=== PATIENT | male | born 1945 | race Two or more races ===

== ENCOUNTER 2020-04-02 00:25 | Inpatient (IN) | payer OTHER ==
[~2020-04-02] VITALS: Ht 167.6 cm; Wt 96.0 kg
[2020-04-02] MEDS ORDERED: HYDROcodone-ACET 10/325MG TAB PO ONE (01:00)
[2020-04-02] MEDS ORDERED: ACCU-CHEK COMFORT CURVE STRIP VI ONE (01:15)
[2020-04-02] MEDS ORDERED: dilTIAZem 25 MG/5 ML VIAL IV ONE (02:00)
[2020-04-02] MEDS ORDERED: InsuLIN REG 1unit/0.01ml Soln (100units/ml) IV ONE (02:00)
[2020-04-02] MEDS ORDERED: dilTIAZem HCL 60 MG TAB PO ONE (02:00)
[2020-04-02 02:29] LABS: Basophils # (auto) 0.1 10 ^3/uL (0-0.2); Basophils % (auto) 0.6 % (0.0-2.0); Eosinophils # (auto) 0 10 ^3/uL (0-0.8); Hematocrit 34.6 % (41.0-53.0); Hemoglobin 11.5 g/dL (13.5-17.5); Lymphocytes # (auto) 0.4 10 ^3/uL (0.4-5.4); Lymphocytes % (auto) 1.8 % (10.0-50.0); Mean Corpuscular Hemoglobin 27.4 pg (28.0-32.0); Mean Corpuscular Hgb Conc. 33.3 g/dL (32.0-36.0); Mean Corpuscular Volume 82.1 fL (80.0-100.0); Monocytes # (auto) 0.7 10 ^3/uL (0-1.3); Monocytes % (auto) 3.2 % (0.0-12.0); Neutrophils # (auto) 22.3 10 ^3/uL (1.6-8.6); Neutrophils % (auto) 94.4 % (37.0-80.0); Platelet Count (auto) 270 10^3/uL (140-450); Red Blood Cells 4.21 10^6/uL (4.5-5.90); Red Cell Distribution Width 13.5 % (11.8-14.3); White Blood Cell 23.6 10^3/uL (4.4-10.8)
[2020-04-02 02:43] LABS: Potassium 3.8 mmol/L (3.5-5.1)
[2020-04-02 02:51] LABS: Albumin 1.9 g/dL (3.4-5.0); BUN/Creatinine Ratio 20.2; Bilirubin, Total 0.8 mg/dL (0.2-1.0); Total Protein 6.7 g/dL (6.4-8.2)
[2020-04-02] MEDS ORDERED: PIPERACILLIN-TAZOB 3.375GM 100 ML IV ONE (03:00)
[2020-04-02] MEDS ORDERED: VANCOMYCIN 1GM/250ML 250 ML IV ONE (03:00)
[2020-04-02 03:17] LABS: Lactic Acid w/Reflex 3.3 mmol/L (0.4-2.0)
[2020-04-02] MEDS ORDERED: SODIUM CHLORIDE 0.9% 1,000 ML IV ONE (04:15)
[2020-04-02] MEDS ORDERED: NITROGLYCERIN 0.4 MG SL TAB SL PRN (06:00)
[2020-04-02] MEDS ORDERED: MORPHINE SULF INJ 2 MG/ML SYRINGE 1ML IV PRN (06:00)
[2020-04-02] MEDS ORDERED: ACETAMINOPHEN 325 MG TAB PO PRN ×2 (06:00→09:30)
[2020-04-02] MEDS ORDERED: ONDANSETRON HCL 4 MG/2 ML VIAL IV PRN (06:00)
[2020-04-02] MEDS ORDERED: DEXTROSE (50%) 50ML SYRG IV PRN (06:00)
[2020-04-02] MEDS ORDERED: METOPROLOL TARTRATE 1MG/1ML-5ML VIAL IV PRN (06:00)
[2020-04-02 07:18] LABS: Hemoglobin 10.7 g/dL (13.5-17.5); Platelet Count (auto) 222 10^3/uL (140-450)
[2020-04-02 07:20] LABS: Hematocrit 32.6 % (41.0-53.0); Mean Corpuscular Hemoglobin 27.1 pg (28.0-32.0); Mean Corpuscular Hgb Conc. 32.8 g/dL (32.0-36.0); Mean Corpuscular Volume 82.7 fL (80.0-100.0); Red Blood Cells 3.95 10^6/uL (4.5-5.90); Red Cell Distribution Width 13.8 % (11.8-14.3)
[2020-04-02 07:30] LABS: Band Neutrophils % (manual) 0; Basophils % (manual) 0 (0.0-2.0); Blast Cells 0; Eosinophils % (manual) 0 (0-7); Metamyelocytes % 0; Myelocytes % 0; Promyelocytes % 0; Reactive Lymphocytes 0
[2020-04-02 07:37] LABS: Potassium 3.5 mmol/L (3.5-5.1)
[2020-04-02 07:42] LABS: BUN/Creatinine Ratio 23.2; Calcium 7.7 mg/dL (8.5-10.1)
[2020-04-02 07:55] LABS: Lymphocytes % (manual) 4 (10.0-50.0); Monocytes % (manual) 1 (0-12)
[2020-04-02] MEDS: ACCU-CHEK COMFORT CURVE STRIP VI SCH ×5 (08:27→23:48)
[2020-04-02] MEDS: InsuLIN REG 1unit/0.01ml Soln (100units/ml) SC SCH ×5 (08:45→23:55)
[2020-04-02 08:57] LABS: Urine Bacteria FEW /hpf (None Seen); Urine Blood 1+ /uL (Negative); Urine Hyaline Cast MANY /lpf (0 - 2); Urine Sperm PRESENT /hpf (None Seen); Urine WBC 2 /hpf (0 - 3)
[2020-04-02] MEDS ORDERED: MAGNESIUM SULFATE 1GM/100ML 100 ML IV ONE (09:00)
[2020-04-02 09:23] LABS: Alcohol, Urine < 3.0 mg/dL (0-10); Amphetamine Screen, Urine NEGATIVE (NEGATIVE); Barbiturate Scree,Urine NEGATIVE (NEGATIVE); Benzodiazephine Screen, Urine NEGATIVE (NEGATIVE); Cannabinoid Screen, Urine NEGATIVE (NEGATIVE); Cocaine Screen, Urine NEGATIVE (NEGATIVE); Opiate Scree,Urine NEGATIVE (NEGATIVE); Phencyclidine Screen, Urine NEGATIVE (NEGATIVE)
[2020-04-02] MEDS ORDERED: POTASSIUM EFFERVESENT TAB 25 MEQ PO ONE (09:30)
[2020-04-02] MEDS ORDERED: SODIUM CHLORIDE 0.9% 500 ML IV ONE (09:30)
[2020-04-02] MEDS: DOCUSATE SOD 100 MG CAP PO SCH (09:49)
[2020-04-02] MEDS: ENOXAPARIN SOD 80 MG/0.8ML SYRINGE SC SCH ×2 (09:49→21:36)
[2020-04-02] MEDS ORDERED: ASPirin 81 mg TAB PO SCH (10:00)
[2020-04-02] MEDS ORDERED: CLOPIDOGREL BISULFATE 75 MG TAB PO SCH (10:00)
[2020-04-02] MEDS ORDERED: PHENYLEPHRINE IV 250 ML IV SCH (10:38)
[2020-04-02] MEDS ORDERED: PHENYLEPHRINE IV 250 ML IV ONE (10:44)
[2020-04-02 13:01] LABS: CRP High Sensitivity 18.8 mg/dL (< 0.3)
[2020-04-02] MEDS ORDERED: HYDR12.56 PO (13:08)
[2020-04-02] MEDS ORDERED: ISOS10TA2 PO (13:08)
[2020-04-02] MEDS ORDERED: ATEN-60 PO (13:08)
[2020-04-02] MEDS ORDERED: ATOR40TA52 PO (13:09)
[2020-04-02] MEDS ORDERED: CHOL20007 PO (13:09)
[2020-04-02] MEDS ORDERED: MAGN400T40 PO (13:09)
[2020-04-02] MEDS ORDERED: BENA10TA9 PO (13:10)
[2020-04-02] MEDS ORDERED: METF-371 PO (13:10)
[2020-04-02] MEDS ORDERED: LEVO-28 PO (13:11)
[2020-04-02] MEDS ORDERED: CLOP75TA41 PO (13:12)
[2020-04-02] MEDS ORDERED: INSU100I51 SC (13:12)
[2020-04-02] MEDS ORDERED: INSU1INJ19 SC (13:12)
[2020-04-02] MEDS ORDERED: LATA0.0019 EACHEYE (13:14)
[2020-04-02] MEDS ORDERED: OYST500T48 PO (13:14)
[2020-04-02] MEDS ORDERED: ASPI-266 PO (13:14)
[2020-04-02] MEDS ORDERED: MESA400C5 PO (13:15)
[2020-04-02] MEDS ORDERED: DIGOXIN (250MCG/ML) 2 ML AMPULE IV ONE (14:00)
[2020-04-02] MEDS ORDERED: VANCOMYCIN PER PHARMACY 0 MG IV SCH (14:15)
[2020-04-02] MEDS: ALBUMIN 25% 100 ML IV SCH ×2 (14:32→22:18)
[2020-04-02] MEDS: SODIUM CHLORIDE 0.9% 1,000 ML IV SCH (14:41)
[2020-04-02] MEDS: PIPERACILLIN-TAZOB 3.375GM 100 ML IV SCH ×2 (18:11→23:48)
[2020-04-02] MEDS ORDERED: LORazepam 2MG/ML-1ML VIAL IV PRN (21:30)
[2020-04-02] MEDS ORDERED: ATORVASTATIN 20 MG TAB PO SCH (22:00)
[2020-04-03] VITALS (7 sets, daily range): BP systolic 91–123; BP diastolic 53–59
[2020-04-03] MEDS: SODIUM CHLORIDE 0.9% 1,000 ML IV SCH (00:31)
[2020-04-03] MEDS ORDERED: EPINEPHrine HCL 1 MG/10 ML SYRG IV ONE (02:45)
[2020-04-03] MEDS ORDERED: SODIUM BICARBONATE 8.4% INJ 50ML SYRINGE IV ONE (02:45)
[2020-04-03] MEDS ORDERED: DIGOXIN (250MCG/ML) 2 ML AMPULE IV ONE (03:30)
[2020-04-03] MEDS: InsuLIN REG 1unit/0.01ml Soln (100units/ml) SC SCH ×5 (04:16→20:47)
[2020-04-03] MEDS: ACCU-CHEK COMFORT CURVE STRIP VI SCH ×5 (04:16→20:43)
[2020-04-03] MEDS: PIPERACILLIN-TAZOB 3.375GM 100 ML IV SCH ×3 (05:47→18:19)
[2020-04-03 07:22] LABS: Potassium 3.3 mmol/L (3.5-5.1)
[2020-04-03 07:29] LABS: Albumin 2.1 g/dL (3.4-5.0); BUN/Creatinine Ratio 33.7; Bilirubin, Total 1.3 mg/dL (0.2-1.0); Calcium 7.9 mg/dL (8.5-10.1); Total Protein 6.3 g/dL (6.4-8.2)
[2020-04-03 07:30] LABS: Basophils # (auto) 0 10 ^3/uL (0-0.2); Eosinophils # (auto) 0 10 ^3/uL (0-0.8); Eosinophils % (auto) 0.1 % (0.0-7.0); Hematocrit 32.6 % (41.0-53.0); Hemoglobin 10.8 g/dL (13.5-17.5); Lymphocytes # (auto) 0.3 10 ^3/uL (0.4-5.4); Lymphocytes % (auto) 2.9 % (10.0-50.0); Mean Corpuscular Hemoglobin 27.4 pg (28.0-32.0); Mean Corpuscular Hgb Conc. 33.1 g/dL (32.0-36.0); Mean Corpuscular Volume 82.8 fL (80.0-100.0); Monocytes # (auto) 0.6 10 ^3/uL (0-1.3); Monocytes % (auto) 5.1 % (0.0-12.0); Neutrophils # (auto) 9.9 10 ^3/uL (1.6-8.6); Neutrophils % (auto) 91.9 % (37.0-80.0); Platelet Count (auto) 177 10^3/uL (140-450); Red Blood Cells 3.94 10^6/uL (4.5-5.90); Red Cell Distribution Width 13.6 % (11.8-14.3); White Blood Cell 10.8 10^3/uL (4.4-10.8)
[2020-04-03] MEDS: ALBUMIN 25% 100 ML IV SCH (07:49)
[2020-04-03] MEDS ORDERED: POTASSIUM CHL 20 Meq TABLET PO ONE ×2 (08:15→09:45)
[2020-04-03] MEDS ORDERED: AMIODARONE HCL 150 MG in D5W 5% 100 ML IV ONE (08:15)
[2020-04-03] MEDS ORDERED: AMIODARONE 450mg/250ml AE 250 ML IV SCH (08:20)
[2020-04-03] MEDS: SOD CHL 0.9%/ KCL 20MEQ 1,000 ML IV SCH (09:45)
[2020-04-03] MEDS: DOCUSATE SOD 100 MG CAP PO SCH (09:51)
[2020-04-03] MEDS ORDERED: APIXABAN 5 MG TAB PO SCH (10:00)
[2020-04-03] MEDS ORDERED: METOPROLOL TARTRATE 25 MG TAB PO SCH (10:00)
[2020-04-03] MEDS ORDERED: SUCCINYLCHOLINE CHLORIDE 20 MG/ML 10ML VIAL IV ONE ×2 (10:13→10:22)
[2020-04-03] MEDS ORDERED: MIDAZOLAM DRIP 50 mg/50mL 50 ML IV ONE (10:13)
[2020-04-03] MEDS ORDERED: ETOMIDATE (2MG/ML) 20ML VIAL IV ONE ×2 (10:21→10:22)
[2020-04-03] MEDS: MIDAZOLAM DRIP 50 mg/50mL 50 ML IV SCH ×2 (10:27→21:07)
--- NOTE | 2020-04-03 10:29 | NUR ---
PT INTUBATED BY RESERVOIR ENGINEERING CONSULTANT STUDENT WITH DR ENGLAND AT BEDSIDE. INTUBATED WITH ETT 8.0 AT 24CM LIP, SECURED WITH HOLISTER. POSITIVE COLOR CHANGE ON ETCO2 DETECTOR. PLACED ON VENTILATOR V7 PLUGGED INTO RED OUTLET, ON SETTINGS: AC, RR 14, VT 500, PEEP +5, FIO2 100%. SUCTIONED FOR MODERATE THIN BLOODY SECRETIONS. SPUTUM SAMPLE OBTAINED AND SENT TO LAB. BILATERAL CHEST RISE NOTED, BILATERAL BREATH SOUNDS DIM/COARSE. ALARMS SET AND AUDIBLE. MD AT BEDSIDE FOR CENTRAL LINE PLACEMENT. RN AT BEDSIDE. WILL CONTINUE TO MONITOR.
[2020-04-03] MEDS ORDERED: PANTOPRAZOLE 40 MG TAB PO ONE (10:45)
[2020-04-03] MEDS ORDERED: NOREPINEPHRINE 8 MG/250ML KIT 250 ML IV SCH (11:30)
[2020-04-03] MEDS ORDERED: SODIUM CHLORIDE 0.9% 1,000 ML IV ONE (11:30)
[2020-04-03 11:34] LABS: INR 1.37 (0.9-1.15); Partial Thromboplastin Time 40.4 sec (23.64-32.05)
[2020-04-03] MEDS ORDERED: PANTOPRAZOLE 40 MG/10 ML VIAL INJ IV ONE (12:30)
[2020-04-03] MEDS: PHENYLEPHRINE IV 250 ML IV SCH ×2 (13:00→20:53)
[2020-04-03] MEDS: AMIODARONE 450mg/250ml AE 250 ML IV SCH (14:26)
[2020-04-03] MEDS: METOCLOPRAMIDE HCL 5MG/ml INJ 2ml VIAL IV SCH ×2 (14:32→22:39)
[2020-04-03] MEDS: ACETYLCYSTEINE 10 %(100MG/ML) SOL 4ML NEB SCH ×3 (14:40→23:25)
[2020-04-03] MEDS: ALBUTEROL SULF 2.5 MG/0.5ML(0.5%) NEB SOLN NEB SCH ×3 (14:40→23:24)
[2020-04-03] MEDS: IPRATROPIUM BROM 0.5 MG/2.5ML INH SOL NEB SCH ×3 (14:40→23:23)
[2020-04-03] MEDS: BUDESONIDE (INHALATION) 0.5 MG/2 ML NEB NEB SCH (19:01)
[2020-04-03] MEDS ORDERED: DOCUSATE ORAL LIQUID 100 MG/10 ML UD GT SCH (22:00)
[2020-04-03] MEDS: ATORVASTATIN 20 MG TAB GT SCH (22:39)
[2020-04-03] MEDS: ENOXAPARIN SOD 80 MG/0.8ML SYRINGE SC SCH (22:39)
[2020-04-04] VITALS (12 sets, daily range): BP systolic 81–122; BP diastolic 48–67
[2020-04-04] MEDS: PIPERACILLIN-TAZOB 3.375GM 100 ML IV SCH ×4 (00:36→17:27)
[2020-04-04] MEDS: ACCU-CHEK COMFORT CURVE STRIP VI SCH ×6 (00:36→20:14)
[2020-04-04] MEDS: InsuLIN REG 1unit/0.01ml Soln (100units/ml) SC SCH ×6 (00:38→20:19)
[2020-04-04] MEDS: IPRATROPIUM BROM 0.5 MG/2.5ML INH SOL NEB SCH ×6 (02:41→22:29)
[2020-04-04] MEDS: ALBUTEROL SULF 2.5 MG/0.5ML(0.5%) NEB SOLN NEB SCH ×6 (02:41→22:29)
[2020-04-04] MEDS: ACETYLCYSTEINE 10 %(100MG/ML) SOL 4ML NEB SCH ×6 (02:41→22:29)
[2020-04-04] MEDS: MIDAZOLAM DRIP 50 mg/50mL 50 ML IV SCH ×3 (03:29→17:07)
[2020-04-04] MEDS: SOD CHL 0.9%/ KCL 20MEQ 1,000 ML IV SCH ×2 (06:40→20:12)
[2020-04-04] MEDS: METOCLOPRAMIDE HCL 5MG/ml INJ 2ml VIAL IV SCH ×3 (06:41→21:35)
[2020-04-04 06:49] LABS: Basophils # (auto) 0 10 ^3/uL (0-0.2); Basophils % (auto) 0.2 % (0.0-2.0); Eosinophils # (auto) 0 10 ^3/uL (0-0.8); Eosinophils % (auto) 0.1 % (0.0-7.0); Hemoglobin 8.8 g/dL (13.5-17.5); Lymphocytes # (auto) 0.5 10 ^3/uL (0.4-5.4); Lymphocytes % (auto) 5.2 % (10.0-50.0); Mean Corpuscular Hemoglobin 27.3 pg (28.0-32.0); Mean Corpuscular Hgb Conc. 32.5 g/dL (32.0-36.0); Mean Corpuscular Volume 84.1 fL (80.0-100.0); Monocytes # (auto) 0.7 10 ^3/uL (0-1.3); Monocytes % (auto) 8.1 % (0.0-12.0); Neutrophils # (auto) 7.7 10 ^3/uL (1.6-8.6); Neutrophils % (auto) 86.4 % (37.0-80.0); Platelet Count (auto) 152 10^3/uL (140-450); Red Blood Cells 3.21 10^6/uL (4.5-5.90); Red Cell Distribution Width 14.2 % (11.8-14.3); White Blood Cell 8.9 10^3/uL (4.4-10.8)
[2020-04-04 07:14] LABS: Potassium 3.6 mmol/L (3.5-5.1)
[2020-04-04 07:24] LABS: Albumin 1.8 g/dL (3.4-5.0); BUN/Creatinine Ratio 23.1; Bilirubin, Total 0.8 mg/dL (0.2-1.0); Calcium 7.4 mg/dL (8.5-10.1); Total Protein 5.4 g/dL (6.4-8.2)
[2020-04-04] MEDS: BUDESONIDE (INHALATION) 0.5 MG/2 ML NEB NEB SCH ×2 (08:02→22:29)
[2020-04-04] MEDS: AMIODARONE 450mg/250ml AE 250 ML IV SCH ×2 (08:12→20:21)
[2020-04-04] MEDS: PANTOPRAZOLE 40 MG/10 ML VIAL INJ IV SCH (08:14)
[2020-04-04] MEDS: ENOXAPARIN SOD 80 MG/0.8ML SYRINGE SC SCH ×2 (08:14→21:38)
[2020-04-04] MEDS: PHENYLEPHRINE IV 250 ML IV SCH ×3 (08:16→17:07)
[2020-04-04] MEDS ORDERED: DOCUSATE ORAL LIQUID 100 MG/10 ML UD GT PRN (08:45)
--- NOTE | 2020-04-04 09:44 | NUR ---
HOLD P.T. BECAUSE OF INTUBATION OF PATIENT. WILL AWAIT NEW ORDERS.
[2020-04-04] MEDS ORDERED: PANTOPRAZOLE 40 MG TAB PO SCH (10:00)
[2020-04-04] MEDS: ACETAMINOPHEN 650 mg PER 20 mL UD GT PRN ×2 (10:11→18:40)
[2020-04-04] MEDS ORDERED: VANCOMYCIN 1GM/250ML 250 ML IV ONE (10:30)
[2020-04-04] MEDS ORDERED: NOREPINEPHRINE 8 MG/250ML KIT 250 ML IV SCH (11:27)
[2020-04-04] MEDS: ATORVASTATIN 20 MG TAB GT SCH (21:35)
[2020-04-05] VITALS (24 sets, daily range): BP systolic 88–131; BP diastolic 50–72
[2020-04-05] MEDS: PIPERACILLIN-TAZOB 3.375GM 100 ML IV SCH ×5 (00:06→23:57)
[2020-04-05] MEDS: ACCU-CHEK COMFORT CURVE STRIP VI SCH ×6 (00:20→20:26)
[2020-04-05] MEDS: InsuLIN REG 1unit/0.01ml Soln (100units/ml) SC SCH ×6 (00:20→20:17)
[2020-04-05] MEDS: IPRATROPIUM BROM 0.5 MG/2.5ML INH SOL NEB SCH ×6 (01:54→23:10)
[2020-04-05] MEDS: ACETYLCYSTEINE 10 %(100MG/ML) SOL 4ML NEB SCH ×6 (01:54→23:10)
[2020-04-05] MEDS: ALBUTEROL SULF 2.5 MG/0.5ML(0.5%) NEB SOLN NEB SCH ×6 (01:54→23:10)
[2020-04-05] MEDS: PHENYLEPHRINE IV 250 ML IV SCH ×3 (02:19→22:05)
[2020-04-05] MEDS: ACETAMINOPHEN 650 mg PER 20 mL UD GT PRN ×2 (04:15→10:31)
[2020-04-05] MEDS: METOCLOPRAMIDE HCL 5MG/ml INJ 2ml VIAL IV SCH ×3 (05:47→22:05)
[2020-04-05 06:05] LABS: Basophils # (auto) 0 10 ^3/uL (0-0.2); Basophils % (auto) 0.4 % (0.0-2.0); Eosinophils # (auto) 0 10 ^3/uL (0-0.8); Eosinophils % (auto) 0.5 % (0.0-7.0); Hematocrit 29.8 % (41.0-53.0); Hemoglobin 9.9 g/dL (13.5-17.5); Lymphocytes # (auto) 0.7 10 ^3/uL (0.4-5.4); Lymphocytes % (auto) 6.8 % (10.0-50.0); Mean Corpuscular Hemoglobin 27.7 pg (28.0-32.0); Mean Corpuscular Hgb Conc. 33.3 g/dL (32.0-36.0); Mean Corpuscular Volume 83.4 fL (80.0-100.0); Monocytes % (auto) 9.6 % (0.0-12.0); Neutrophils # (auto) 8.8 10 ^3/uL (1.6-8.6); Neutrophils % (auto) 82.7 % (37.0-80.0); Platelet Count (auto) 198 10^3/uL (140-450); Red Blood Cells 3.57 10^6/uL (4.5-5.90); Red Cell Distribution Width 14.5 % (11.8-14.3); White Blood Cell 10.6 10^3/uL (4.4-10.8)
[2020-04-05] MEDS: MIDAZOLAM DRIP 50 mg/50mL 50 ML IV SCH ×3 (07:30→23:57)
[2020-04-05] MEDS ORDERED: DIGOXIN (250MCG/ML) 2 ML AMPULE IV ONE (09:00)
[2020-04-05 09:12] LABS: Potassium 3.8 mmol/L (3.5-5.1)
[2020-04-05] MEDS: PANTOPRAZOLE 40 MG/10 ML VIAL INJ IV SCH (09:18)
[2020-04-05] MEDS: ENOXAPARIN SOD 80 MG/0.8ML SYRINGE SC SCH ×2 (09:18→22:05)
[2020-04-05] MEDS ORDERED: MAGNESIUM SULFATE 1GM/100ML 100 ML IV ONE (09:30)
[2020-04-05] MEDS: VANCOMYCIN 1GM/250ML 250 ML IV SCH (09:30)
[2020-04-05] MEDS ORDERED: POTASSIUM CHL 20MEQ/100ML 100 ML IV ONE (09:30)
[2020-04-05] MEDS ORDERED: FUROSEMIDE 40 MG/4 ML VIAL IV ONE (09:45)
[2020-04-05] MEDS ORDERED: Glucerna 1.2 Cal 1Liter BOTTLE GT SCH (09:45)
[2020-04-05] MEDS: ALBUMIN 25% 100 ML IV SCH ×2 (10:00→16:32)
[2020-04-05] MEDS ORDERED: INSULIN LANTUS (GLARGINE) 1 /0.01ml (100units/ml) SC SCH (10:00)
[2020-04-05] MEDS: BUDESONIDE (INHALATION) 0.5 MG/2 ML NEB NEB SCH ×2 (10:37→18:13)
--- NOTE | 2020-04-05 11:55 | NUR ---
WOUND CARE NOTE: Wound care in to see patient due to intubation status and low Jose A score of 12, putting patient to high risk for skin breakdown. Patient is 75 years old male with admitting diagnosis of NSTEMI, Uncontrolled DM. Patient is resting in hospital bed in ED#17. Patient is intubated, sedated and mechanically ventilated. Patient appears to be in no pain using Byers Cardoza Faces Pain Scale. Skin assessment done with the assistance of patient's nurse, BRAVO Rojo. No open wound noted other than multi dry brown scabs to BLE, dark brown pigmented hyperkeratotic skin to bilateral knee, dry calloused DFU to to distal L great toe and 1x1.5cm closed calloused DFU to plantar aspect of L great toe.Patient's noted with partial amputation of L great toe with intact pink scar tissue. No pressure injury noted. Patient is receiving BID/PRN cleaning and application of Barrier cream to sacrum with preventative Opti foam sacral dressing. Repositioned patient for comfort facing his Rt side, redistributed pressure points with pillows. BRAVO Rojo at bedside. RECOMMENDATION: Nursing to continue with BID/PRN cleaning and application of Barrier cream to sacral/ buttocks as preventative, frequent turning and repositioning schedule as condition permits, redistribute pressure points with pillows, elevate heels on pillows, continue monitoring by wound care while patient is intubated and has Jose A score of <18. Addendum: 04/05/20 at 1530 by Estefani Oh RN Amended: Links added.
[2020-04-05] MEDS: AMIODARONE 450mg/250ml AE 250 ML IV SCH (13:26)
--- NOTE | 2020-04-05 20:38 | NUR ---
Respiratory note: PLACED PT BACK ON VENT AT THIS TIME AFTER TRANSPORTING FROM ER. TRANSPORT APPROX 5 MIN. NO COMPLICATIONS.
--- NOTE | 2020-04-05 20:40 | NUR ---
ADMITTED PATIENT FROM THE ER: INTUBATED AND SEDATED ON VERSED. OPENS EYES WITH STIMULI, DOES NOT FOLLOW COMMANDS AT THIS TIME. NSR WITH INVERTED T WAVE, HR 70s. SBP 110-120s, MAP > 70 ON SHAYY GTT. 8.0 ETT, 26 AT THE LIP. LS CTA, DIMINISHED TO BASES. TACHYPNEIC, RR 30s. SpO2 92-94%. ABD SOFT. HYPOACTIVE BS. NGT + AIR BOLUS, ADVANCED TO 65 CM AT THE NARES. SMEAR BM. MCDONALD PATENT AND INTACT, DRAINING YELLOW URINE. SKIN GROSSLY INTACT, REMOVED TEGADERM FROM RECTAL PROBE AND REPOSITIONED PROBE. RIGHT IJ TLC, CDI, AND PATENT WITH BLOOD RETURN. REINFORCED POC. MAINTAINED PATIENT SAFETY: BED LOCKED AND IN THE LOWEST POSITION, FREQUENT VISUAL CHECKS. WILL CONT CARE.
[2020-04-05] MEDS: ATORVASTATIN 20 MG TAB GT SCH (22:06)
[2020-04-06] VITALS (103 sets, daily range): BP systolic 81–151; BP diastolic 6–86
[2020-04-06] MEDS: InsuLIN REG 1unit/0.01ml Soln (100units/ml) SC SCH ×6 (00:05→23:56)
[2020-04-06] MEDS: ACCU-CHEK COMFORT CURVE STRIP VI SCH ×6 (00:10→23:56)
--- NOTE | 2020-04-06 00:30 | NUR ---
ATTEMPTED TO REPOSITION TO LEFT SIDE BUT DESATURATED DOWN TO 89% - TURNED TO RIGHT SIDE, SpO2 93-94%
[2020-04-06] MEDS: ALBUMIN 25% 100 ML IV SCH (01:12)
--- NOTE | 2020-04-06 02:15 | NUR ---
SATURATING 90-91% - JESUS, RT MADE AWARE
[2020-04-06] MEDS: AMIODARONE 450mg/250ml AE 250 ML IV SCH ×3 (02:20→21:46)
--- NOTE | 2020-04-06 02:30 | NUR ---
FiO2 INCREASED BY RT
--- NOTE | 2020-04-06 02:47 | NUR ---
SPOKE WITH JON MELLOWING MACHINE OPERATOR: NOTIFIED OF RESPIRATORY STATUS, HISTORY AND INTERVENTION THUS FAR. ORDERS FOR FENTANYL GTT. ORDERS READBACK AND VERIFIED.
[2020-04-06] MEDS ORDERED: AMIODARONE 450mg/250ml AE 250 ML IV ONE (02:56)
[2020-04-06] MEDS ORDERED: fentaNYL Drip 2500mCg/250mlNS 250 ML IV ONE (02:57)
[2020-04-06] MEDS: fentaNYL Drip 2500mCg/250mlNS 250 ML IV SCH (03:09)
--- NOTE | 2020-04-06 04:15 | NUR ---
TEMP 100.5F ORALLY - ICE PACKS APPLIED TO AXILLA
[2020-04-06] MEDS: MIDAZOLAM DRIP 50 mg/50mL 50 ML IV SCH ×4 (04:36→22:47)
[2020-04-06 04:41] LABS: Basophils # (auto) 0 10 ^3/uL (0-0.2); Basophils % (auto) 0.3 % (0.0-2.0); Eosinophils # (auto) 0 10 ^3/uL (0-0.8); Eosinophils % (auto) 0.5 % (0.0-7.0); Lymphocytes # (auto) 0.7 10 ^3/uL (0.4-5.4); Monocytes # (auto) 0.8 10 ^3/uL (0-1.3)
[2020-04-06 04:47] LABS: Hematocrit 25.6 % (41.0-53.0); Hemoglobin 8.1 g/dL (13.5-17.5); Mean Corpuscular Hemoglobin 26.3 pg (28.0-32.0); Mean Corpuscular Hgb Conc. 31.5 g/dL (32.0-36.0); Mean Corpuscular Volume 83.3 fL (80.0-100.0); Monocytes % (auto) 8.8 % (0.0-12.0); Neutrophils # (auto) 7.6 10 ^3/uL (1.6-8.6); Neutrophils % (auto) 82.4 % (37.0-80.0); Platelet Count (auto) 165 10^3/uL (140-450); Red Blood Cells 3.07 10^6/uL (4.5-5.90); Red Cell Distribution Width 14.4 % (11.8-14.3); White Blood Cell 9.3 10^3/uL (4.4-10.8)
[2020-04-06 04:59] LABS: Potassium 3.8 mmol/L (3.5-5.1)
--- NOTE | 2020-04-06 05:00 | NUR ---
BED BATH WITH CHG WIPES, PENNIE CARE, MCDONALD CARE, ORAL CARE, AND PARTIAL LINEN CHANGE COMPLETED
[2020-04-06 05:02] LABS: BUN/Creatinine Ratio 17.9; Magnesium 2.1 mg/dL (1.6-2.6)
[2020-04-06] MEDS: ACETAMINOPHEN 650 mg PER 20 mL UD GT PRN ×2 (05:13→20:16)
--- NOTE | 2020-04-06 05:14 | NUR ---
TEMP REMAINS 100.5F - TYLENOL PRN GIVEN
[2020-04-06] MEDS: PIPERACILLIN-TAZOB 3.375GM 100 ML IV SCH (05:56)
[2020-04-06] MEDS: METOCLOPRAMIDE HCL 5MG/ml INJ 2ml VIAL IV SCH ×3 (05:56→21:38)
[2020-04-06] MEDS: PHENYLEPHRINE IV 250 ML IV SCH ×5 (06:12→22:46)
--- NOTE | 2020-04-06 06:15 | NUR ---
TEMP DOWN TO 100F
--- NOTE | 2020-04-06 06:30 | NUR ---
BLOOD PRESSURE DECREASED - TITRATE SHAYY GTT NEEDED
[2020-04-06] MEDS: ACETYLCYSTEINE 10 %(100MG/ML) SOL 4ML NEB SCH ×6 (06:38→22:18)
[2020-04-06] MEDS: ALBUTEROL SULF 2.5 MG/0.5ML(0.5%) NEB SOLN NEB SCH ×6 (06:38→22:18)
[2020-04-06] MEDS: IPRATROPIUM BROM 0.5 MG/2.5ML INH SOL NEB SCH ×6 (06:38→22:18)
--- NOTE | 2020-04-06 07:30 | NUR ---
REPORT AND CARE ENDORSED TO BRAVO WHYTE
--- NOTE | 2020-04-06 08:10 | NUR ---
O2 SATS 89-91%, INCREASED FIO2 TO 45%. SPO2 NOW MAINTAINING 92%
[2020-04-06] MEDS ORDERED: MIDAZOLAM DRIP 50 mg/50mL 50 ML IV ONE (09:05)
[2020-04-06] MEDS ORDERED: DEXTROSE (50%) 50ML SYRG IV PRN (09:30)
[2020-04-06] MEDS ORDERED: DIGOXIN 0.125 MG TAB PO SCH (10:00)
[2020-04-06] MEDS: BUDESONIDE (INHALATION) 0.5 MG/2 ML NEB NEB SCH ×2 (10:25→22:18)
--- NOTE | 2020-04-06 10:25 | NUR ---
O2 DESAT 90%. INCREASED FIO2 TO 50%. SPO2 NOW MAINTAINING 92%. RN AT BEDSIDE, AWARE OF CHANGES.
[2020-04-06] MEDS ORDERED: POTASSIUM EFFERVESENT TAB 25 MEQ GT ONE (10:30)
[2020-04-06] MEDS ORDERED: FUROSEMIDE 40 MG/4 ML VIAL IV ONE (10:30)
[2020-04-06] MEDS: VANCOMYCIN 1GM/250ML 250 ML IV SCH (10:30)
[2020-04-06] MEDS: INSULIN LANTUS (GLARGINE) 1 /0.01ml (100units/ml) SC SCH (10:31)
[2020-04-06] MEDS: PANTOPRAZOLE 40 MG/10 ML VIAL INJ IV SCH (10:31)
--- NOTE | 2020-04-06 11:54 | NUR ---
Est energy needs 8739-7648 kcal (20-23 kcal/kg BW 84.8kg) Est protein needs 68-85g (0.8-1g/kg BW) Will reassess prn. Addendum: 04/06/20 at [address] Amended: Links added.
--- NOTE | 2020-04-06 12:10 | NUR ---
NOTED TO BE DESATURATIONG AND INCREASED WORK OF BREATHING. FROTHY PINK SPUTUM IN ETT. RT AT BEDSIDE, SUCTIONED, FIO2 INCREASED TO 100%.
--- NOTE | 2020-04-06 12:50 | NUR ---
ETT RETRACTED 2CM RECOMMENDED BY RADIOLOGIST'S REPORT. ETT NOW 8.0 AT 22CM LIP. NOTIFIED RN OF CHANGES.
[2020-04-06] MEDS ORDERED: PROPOFOL 10 MG/ML 20 ML IV ONE (13:00)
--- NOTE | 2020-04-06 13:00 | NUR ---
Called Dr. Alexi Montoya with update on patient status. New vent orders received. Orders read back and verified. Pt now on vent settings: AC, RR 14, VT 450, PEEP +10, FIO2 100%. SPO2 currently maintaining 94%. Notified RN of changes.
[2020-04-06] MEDS ORDERED: PROPOFOL 100 ML IV ONE (13:34)
[2020-04-06] MEDS: PROPOFOL 100 ML IV SCH ×2 (13:45→22:59)
--- NOTE | 2020-04-06 15:15 | NUR ---
GASTRIC RESIDUAL > 60 ML/HR - TF HELD
--- NOTE | 2020-04-06 15:30 | NUR ---
OPENING NOTE: INTUBATED AND SEDATED ON VERSED, FENT, AND PROP; GROSSLY UNRESPONSIVE. NSR WITH HR 70s. SBP 100Ss, MAP > 70 ON SHAYY GTT. 8.0 ETT, 22 AT THE LIP. LS CTA, DIMINISHED TO BASES. TACHYPNEIC, RR TEENs. SpO2 94-96%. ABD SOFT. HYPOACTIVE BS. NGT + AIR BOLUS, ADVANCED TO 65 CM AT THE NARES. SMEAR BM. MCDONALD PATENT AND INTACT, DRAINING YELLOW URINE. SKIN GROSSLY INTACT. RIGHT IJ TLC, CDI, AND PATENT WITH BLOOD RETURN. REINFORCED POC. MAINTAINED PATIENT SAFETY: BED LOCKED AND IN THE LOWEST POSITION, FREQUENT VISUAL CHECKS. WILL CONT CARE.
--- NOTE | 2020-04-06 16:20 | NUR ---
TITRATED FIO2 TO 80%, PT TOLERATING CHANGES, SPO2 96%. NOTIFIED RN OF CHANGES.
[2020-04-06] MEDS: levoFLOXacin 750MG 150 ML IV SCH (17:08)
--- NOTE | 2020-04-06 19:31 | NUR ---
TEMP 101.1F ORALLY - ICE PACKS TO AXILLA, AND COOL WASH CLOTH TO FOREHEAD
--- NOTE | 2020-04-06 19:50 | NUR ---
ATTEMPTED TO WEAN DIPRIVAN GTT - PATIENT DESATURATING WITH ABDOMINAL BREATHING
--- NOTE | 2020-04-06 20:14 | NUR ---
TEMP 100.9F ORALLY - TYLENOL PRN GIVEN
--- NOTE | 2020-04-06 20:44 | NUR ---
UNABLE TO COMPLETE SEDATION VACATION: PATIENT BECOMES ASYNCHRONOUS WITH VENTILATOR AND DESATURATES. Addendum: 04/06/20 at 2043 by Janet Stark RN RN Amended: Links added.
[2020-04-06] MEDS: ATORVASTATIN 20 MG TAB GT SCH (21:38)
--- NOTE | 2020-04-06 21:45 | NUR ---
TEMP NOW 99.7F
--- NOTE | 2020-04-06 22:47 | NUR ---
NEURO STATUS: REMAINS GROSSLY UNRESPONSIVE. INTERMITTENTLY ABNORMAL BREATHING WITH ABDOMINAL BREATHING, AND ACCESSORY MUSCLE USE.
[2020-04-07] VITALS (110 sets, daily range): BP systolic 83–135; BP diastolic 32–59
--- NOTE | 2020-04-07 00:15 | NUR ---
INCREASED SEDATION - PATIENT ASYNCHRONOUS WITH THE VENTILATOR
--- NOTE | 2020-04-07 00:30 | NUR ---
GASTRIC RESIDUAL > 120 ML - PLACED ON LCS - ADDITIONAL 120 ML OUT - PLACED NGT TO LIS
--- NOTE | 2020-04-07 00:45 | NUR ---
BP DROPPING, MAX'D ON SHAYY GTT, O2 SATURATION LOW, AND POOR UOP - PAGED WASH OIL COOLER OPERATOR HOSPITALIST
[2020-04-07] MEDS ORDERED: NOREPINEPHRINE 8 MG/250ML KIT 250 ML IV ONE (00:49)
--- NOTE | 2020-04-07 01:14 | NUR ---
WILL ATTEMPT TO WEAN FENTANYL GTT TO SEE IF ANY EFFECT ON BP OR RESPIRATORY STATUS
[2020-04-07] MEDS: PHENYLEPHRINE INJ 40 MG in SODIUM CHL 0.9% 250 ML IV SCH ×4 (01:16→21:04)
[2020-04-07] MEDS: PHENYLEPHRINE IV 250 ML IV SCH (01:16)
--- NOTE | 2020-04-07 01:20 | NUR ---
SPOKE WITH DR. PALOMO: MADE AWARE OF BLOOD PRESSURE, HEART RATE, UOP, LUNG SOUNDS, SpO2. ORDERS FOR LEVOPHED GTT. ORDERS READBACK AND VERIFIED. INQUIRED ABOUT DIURESING PATIENT, AND DEFERRED AT THIS TIME.
--- NOTE | 2020-04-07 01:30 | NUR ---
STARTED ON LEVOPHED GTT
[2020-04-07] MEDS: NOREPINEPHRINE 8 MG/250ML KIT 250 ML IV SCH (01:31)
[2020-04-07] MEDS: ACETYLCYSTEINE 10 %(100MG/ML) SOL 4ML NEB SCH ×6 (02:20→22:26)
[2020-04-07] MEDS: IPRATROPIUM BROM 0.5 MG/2.5ML INH SOL NEB SCH ×6 (02:20→22:27)
[2020-04-07] MEDS: ALBUTEROL SULF 2.5 MG/0.5ML(0.5%) NEB SOLN NEB SCH ×6 (02:20→22:26)
[2020-04-07] MEDS: MIDAZOLAM DRIP 50 mg/50mL 50 ML IV SCH ×4 (02:45→19:49)
[2020-04-07] MEDS: fentaNYL Drip 2500mCg/250mlNS 250 ML IV SCH (02:47)
--- NOTE | 2020-04-07 02:55 | NUR ---
DESATURATING DOWN TO 82% - NOTIFIED FATOU RT: PLACED PATIENT ON 100% FiO2
--- NOTE | 2020-04-07 02:56 | NUR ---
PAGED DR. PALOMO
[2020-04-07] MEDS ORDERED: FUROSEMIDE 20 MG/2 ML VIAL IV ONE (03:00)
--- NOTE | 2020-04-07 03:00 | NUR ---
WILL INCREASE LEVOPHED GTT TO INCREASE PERFUSION TO KIDNEYS TO ASSESS EFFICACY IN INCREASING UOP
[2020-04-07] MEDS ORDERED: FUROSEMIDE 20 MG/2 ML VIAL ONE (03:01)
--- NOTE | 2020-04-07 03:05 | NUR ---
SPOKE WITH DR. PALOMO: NOTIFIED OF PATIENT'S RESPIRATORY STATUS, AND INTERVENTIONS THROUGHOUT THE DAY. ORDERS FOR STAT CXR AND 20 MG LASIX. ORDERS READBACK AND VERIFIED
[2020-04-07] MEDS ORDERED: PHENYLEPHRINE HCL 10 MG/ML VL ONE (03:43)
[2020-04-07] MEDS: PROPOFOL 100 ML IV SCH ×4 (04:28→16:42)
--- NOTE | 2020-04-07 04:34 | NUR ---
MAINTAINED OXYGEN SATURATIONS FOR ABOUT 30-60 MINUTES BUT NOW DESATURATING
--- NOTE | 2020-04-07 04:34 | NUR ---
CALLED RADIOLOGY FOR STAT READ ON XRAY BUT NO ANSWER AT THIS TIME
--- NOTE | 2020-04-07 04:50 | NUR ---
Radiology call Called radiology to inquire about status of cxr report. They state it is next to be read.
--- NOTE | 2020-04-07 05:00 | NUR ---
Dr. Samuel Grant call Informed of patient status, desaturations, vent setting, and PIP. He ordered: -obtain stat ABG and call back with results for possible changes to vent settings RN performed TORB; verified orders to be correct. No additional orders received at this time.
[2020-04-07 05:15] LABS: Basophils # (auto) 0.1 10 ^3/uL (0-0.2); Basophils % (auto) 0.4 % (0.0-2.0); Eosinophils # (auto) 0 10 ^3/uL (0-0.8); Eosinophils % (auto) 0.2 % (0.0-7.0); Hematocrit 30.3 % (41.0-53.0); Hemoglobin 9.5 g/dL (13.5-17.5); Lymphocytes # (auto) 1.3 10 ^3/uL (0.4-5.4); Lymphocytes % (auto) 8.1 % (10.0-50.0); Mean Corpuscular Hgb Conc. 31.4 g/dL (32.0-36.0); Mean Corpuscular Volume 86.1 fL (80.0-100.0); Monocytes # (auto) 0.5 10 ^3/uL (0-1.3); Neutrophils # (auto) 13.6 10 ^3/uL (1.6-8.6); Neutrophils % (auto) 88.3 % (37.0-80.0); Nucleated Red Blood Cells % 0.1 %; Platelet Count (auto) 212 10^3/uL (140-450); Red Blood Cells 3.52 10^6/uL (4.5-5.90); Red Cell Distribution Width 15.6 % (11.8-14.3); White Blood Cell 15.3 10^3/uL (4.4-10.8)
--- NOTE | 2020-04-07 05:27 | NUR ---
Dr. Samuel Grant call Informed him of ABG results. He ordered: -increase RR to 20 -administer 2 amps bicarb IVP now -Nephrology consult with Dr. alan -ABG at 0700. RN performed TORB and verified orders to be correct. No additional orders received.
[2020-04-07] MEDS ORDERED: SODIUM BICARBONATE 8.4% INJ 50ML SYRINGE ONE (05:28)
[2020-04-07] MEDS ORDERED: SODIUM BICARBONATE 8.4 % INJ 50ML VIAL IV ONE ×3 (05:30→21:30)
[2020-04-07 05:33] LABS: Albumin 2.2 g/dL (3.4-5.0); BUN/Creatinine Ratio 11.8
[2020-04-07 05:35] LABS: Bilirubin, Total 1.6 mg/dL (0.2-1.0); Total Protein 6.5 g/dL (6.4-8.2)
[2020-04-07 05:51] LABS: Potassium 5.9 mmol/L (3.5-5.1)
[2020-04-07] MEDS: METOCLOPRAMIDE HCL 5MG/ml INJ 2ml VIAL IV SCH ×3 (05:56→22:09)
--- NOTE | 2020-04-07 05:58 | NUR ---
STOPPED AMIO GTT - HR IN THE 60s
--- NOTE | 2020-04-07 05:59 | NUR ---
PAGED ENTRY ANALYST HOSPITALIST - K+5.9
--- NOTE | 2020-04-07 06:04 | NUR ---
SPOKE WITH DR. PALOMO: NOTIFIED OF POTASSIUM LEVEL. INITIALLY WANTED REPEAT LABS AT 1200. INQUIRED AGAIN, ORDERS FOR CALCIUM GLUCONATE. ORDERS READBACK AND VERIFIED
[2020-04-07] MEDS: InsuLIN REG 1unit/0.01ml Soln (100units/ml) SC SCH ×4 (06:05→23:41)
[2020-04-07] MEDS: ACCU-CHEK COMFORT CURVE STRIP VI SCH ×4 (06:05→23:42)
[2020-04-07] MEDS ORDERED: CALCIUM GLUC 4.65meq/50ml D5AE 50 ML IV ONE ×2 (06:11→06:15)
--- NOTE | 2020-04-07 07:42 | NUR ---
REPORT AND CARE ENDORSED TO BRAVO LANGE
--- NOTE | 2020-04-07 08:35 | NUR ---
RT DID NEW ABG AND HAD ORDERS FROM TERENCE MCDONALD TO INCREASE RATE TO 24 ON VENT, AC MODE AND INCREASE PEEP TO 12.
--- NOTE | 2020-04-07 09:30 | NUR ---
K LEVEL 5.9 THIS AM. HELD POTASSIUM EFFERVESCANT ORDERED DAILY.
[2020-04-07] MEDS: PANTOPRAZOLE 40 MG/10 ML VIAL INJ IV SCH (09:46)
[2020-04-07] MEDS: levoFLOXacin 750MG 150 ML IV SCH (09:47)
[2020-04-07] MEDS: INSULIN LANTUS (GLARGINE) 1 /0.01ml (100units/ml) SC SCH (09:49)
[2020-04-07] MEDS ORDERED: POTASSIUM EFFERVESENT TAB 25 MEQ GT SCH (10:00)
[2020-04-07] MEDS ORDERED: FUROSEMIDE 40 MG/4 ML VIAL IV SCH (10:00)
[2020-04-07] MEDS: BUDESONIDE (INHALATION) 0.5 MG/2 ML NEB NEB SCH ×2 (10:09→22:27)
[2020-04-07 12:12] LABS: Calcium 7.8 mg/dL (8.5-10.1); Potassium 5.5 mmol/L (3.5-5.1)
--- NOTE | 2020-04-07 12:15 | NUR ---
DR. REY Provider/Hospitalist at bedside. GAVE UPDATE ON PT. NEW ORDERS RECEIVED.
[2020-04-07] MEDS: VANCOMYCIN 1GM/250ML 250 ML IV SCH (12:28)
[2020-04-07] MEDS ORDERED: PHYTONADIONE (VIT K)10 MG/ML 1ML VIAL SUBCUT ONE (12:30)
[2020-04-07] MEDS ORDERED: ATROPINE SULF 1 MG/10ml SYR ONE (15:24)
--- NOTE | 2020-04-07 15:25 | NUR ---
DR. SHARMA Provider/Hospitalist at bedside FOR CONSULT. GAVE UPDATE ON PT. NEW ORDERS RECEIVED.
--- NOTE | 2020-04-07 15:25 | NUR ---
PT'S. HR DECREASED TO 57-58, SB. TURNED OFF PROPOFOL GTT.
[2020-04-07] MEDS ORDERED: DOPamine 1600MCG/ML D5W 250 ML IV ONE (15:27)
--- NOTE | 2020-04-07 15:27 | NUR ---
PT'S. HR DECREASED TO 40, SB. DR. SHARMA AT BS. GAVE PT. 1MG. ATROPINE IVP. HR REMAINED IN THE LOW 40'S, DID NOT RESPOND TO ATROPINE. ORDER RECEIVED TO START PT. ON DOPAMINE GTT. PT. IS CURRENTLY ON NEOSYNEPHRINE GTT. 180 MCG., LEVOPHED GTT. AT 12 MCG. PT. IS FULL CODE STATUS.
[2020-04-07] MEDS ORDERED: FUROSEMIDE 100 MG/10ML VIAL IV ONE ×2 (15:45→21:30)
--- NOTE | 2020-04-07 15:45 | NUR ---
PT'S. HR INCREASED TO THE 70'S, SR WITHOUT ECTOPY. DOPAMINE GTT. AT 20 MCG. SBP 100'S. MONITORING VSS.
[2020-04-07] MEDS ORDERED: ATROPINE SULF 1 MG/10ml SYR IV ONE (16:00)
[2020-04-07] MEDS: DOPamine 1600MCG/ML D5W 250 ML IV SCH (16:00)
--- NOTE | 2020-04-07 16:00 | NUR ---
PT. HEMODYNAMICALLY UNSTABLE TO TURN AT THIS TIME.
[2020-04-07] MEDS ORDERED: InsuLIN REG 1unit/0.01ml Soln (100units/ml) IV ONE (17:00)
[2020-04-07] MEDS ORDERED: ALBUTEROL SULF 2.5 MG/0.5ML(0.5%) NEB SOLN NEB ONE (17:00)
[2020-04-07] MEDS ORDERED: DEXTROSE (50%) 50ML SYRG IV ONE (17:00)
[2020-04-07] MEDS ORDERED: SODIUM ZIRCONIUM CYCL 10 GM PAK PO ONE (17:00)
--- NOTE | 2020-04-07 17:00 | NUR ---
DR. LUEVANO Provider/Hospitalist at bedside. GAVE UPDATE ON PT.
--- NOTE | 2020-04-07 17:45 | NUR ---
GAVE CONSENT VIA PHONE FOR NANO CATHETER PLACEMENT. BRAVO BELTRAN TRANSLATED IN ICELANDIC TO AND AGREED WITH 2 RN'S VIA PHONE AND GAVE CONSENT. DR. LUEVANO AT AND PLACED NANO CATHETER RT. FEMORAL.
--- NOTE | 2020-04-07 18:00 | NUR ---
PT. UNSTABLE TO TURN AT THIS TIME.
--- NOTE | 2020-04-07 19:20 | NUR ---
ATTEMPTED TO CALL DAUGHTER VICKY FOR UPDATE ON PATIENT BUT NO ANSWER AT THIS TIME, WILL CALL AGAIN
--- NOTE | 2020-04-07 19:35 | NUR ---
ATTEMPTED TO CONTACT DAUGHTERVICKY ([phone]), NO ANSWER: LEFT MESSAGE TO CALL BACK ACADEMIC COUNSELOR.
--- NOTE | 2020-04-07 19:45 | NUR ---
UNABLE TO TURN AT THIS TIME
--- NOTE | 2020-04-07 19:45 | NUR ---
VENT SETTINGS: APRV BUR 15 PRESSURE HIGH 35 PRESSURE LOW 0 TIME HIGH 4 TIME LOW 0.6 PSV 15
--- NOTE | 2020-04-07 19:50 | NUR ---
DR. MELTON AT BEDSIDE
--- NOTE | 2020-04-07 20:15 | NUR ---
TEMP 102.1F - ICE PACKS APPLIED AND COOL WASH CLOTH APPLIED TO FOREHEAD
--- NOTE | 2020-04-07 20:15 | NUR ---
TOO UNSTABLE FOR HEAD CT AT THIS TIME
--- NOTE | 2020-04-07 20:16 | NUR ---
OPENING NOTE: INTUBATED AND SEDATED ON VERSED, FENT, AND PROP; GROSSLY UNRESPONSIVE. NSR WITH HR 80s. SBP 100s, MAP > 70 ON SHAYY, LEVO, AND DOPA GTT. 8.0 ETT, 22 AT THE LIP. LS CTA, DIMINISHED TO BASES. TACHYPNEIC, RR 20s. SpO2 HIGH 80s%. ABD SOFT. HYPOACTIVE BS. NGT + AIR BOLUS, GASTRIC RESIDUAL > 60 ML, CONTINUE TO HOLD TF. MCDONALD PATENT AND INTACT, DRAINING MINIMAL DANIEL URINE. SKIN GROSSLY INTACT. RIGHT IJ TLC, CDI, AND PATENT WITH BLOOD RETURN. REINFORCED POC. MAINTAINED PATIENT SAFETY: BED LOCKED AND IN THE LOWEST POSITION, FREQUENT VISUAL CHECKS. WILL CONT CARE.
--- NOTE | 2020-04-07 21:00 | NUR ---
UNABLE TO COMPLETE SEDATION VACATION AT THIS TIME: RESPIRATORY STATUS TOO UNSTABLE Addendum: 04/07/20 at 2301 by Janet Stark RN RN Amended: Links added.
[2020-04-07] MEDS: ATORVASTATIN 20 MG TAB GT SCH (22:09)
--- NOTE | 2020-04-07 22:44 | NUR ---
FAMILY UPDATE/ CODE STATUS: SPOKE WITH VICKY (DTR), WHO WAS WITH PATIENT'S , UPDATED ON PATIENT'S CRITICAL STATUS, AND EVENTS THAT HAPPENED TODAY. INQUIRED ABOUT CODE STATUS, AND PER PATIENT'S , SHE IS REQUESTING FULL CODE STATUS. FAMILY REQUESTING NOT TO GIVE OUT INFORMATION TO DEAN (DAUGHTER), BUT GABRIELLA (DAUGHTER) OK. WILL UPDATE NEXT OF KIN INFORMATION
[2020-04-07] MEDS: AMIODARONE 450mg/250ml AE 250 ML IV SCH (23:20)
[2020-04-08] VITALS (105 sets, daily range): BP systolic 65–159; BP diastolic 39–82
--- NOTE | 2020-04-08 00:06 | NUR ---
TOLERATED REPOSITION TO LEFT
[2020-04-08] MEDS: NOREPINEPHRINE 8 MG/250ML KIT 250 ML IV SCH ×3 (00:58→18:56)
[2020-04-08] MEDS: DOPamine 1600MCG/ML D5W 250 ML IV SCH ×2 (00:59→17:03)
[2020-04-08] MEDS: PROPOFOL 100 ML IV SCH ×3 (00:59→18:01)
[2020-04-08] MEDS: PHENYLEPHRINE INJ 40 MG in SODIUM CHL 0.9% 250 ML IV SCH ×4 (01:00→18:56)
[2020-04-08] MEDS: MIDAZOLAM DRIP 50 mg/50mL 50 ML IV SCH ×4 (01:01→20:00)
--- NOTE | 2020-04-08 01:01 | NUR ---
PER RT, TRANSPORT VENTILATOR DOES NOT HAVE THE CURRENT MODE THAT PATIENT IS ON
--- NOTE | 2020-04-08 02:00 | NUR ---
TOLERATED REPOSITION TO RIGHT
[2020-04-08] MEDS: ACETYLCYSTEINE 10 %(100MG/ML) SOL 4ML NEB SCH ×6 (02:25→22:03)
[2020-04-08] MEDS: ALBUTEROL SULF 2.5 MG/0.5ML(0.5%) NEB SOLN NEB SCH ×6 (02:25→22:03)
[2020-04-08] MEDS: IPRATROPIUM BROM 0.5 MG/2.5ML INH SOL NEB SCH ×6 (02:25→22:04)
[2020-04-08] MEDS: fentaNYL Drip 2500mCg/250mlNS 250 ML IV SCH ×2 (02:46→23:00)
[2020-04-08 04:20] LABS: Hemoglobin 9.1 g/dL (13.5-17.5); Mean Corpuscular Hemoglobin 27.5 pg (28.0-32.0); Mean Corpuscular Hgb Conc. 32.6 g/dL (32.0-36.0); Mean Corpuscular Volume 84.4 fL (80.0-100.0); Platelet Count (auto) 150 10^3/uL (140-450); Red Blood Cells 3.31 10^6/uL (4.5-5.90); Red Cell Distribution Width 14.7 % (11.8-14.3); White Blood Cell 13.1 10^3/uL (4.4-10.8)
[2020-04-08 04:36] LABS: Basophils % (manual) 0 (0.0-2.0); Blast Cells 0; Eosinophils % (manual) 0 (0-7); Metamyelocytes % 0; Myelocytes % 0; Promyelocytes % 0; Reactive Lymphocytes 0
[2020-04-08 04:38] LABS: Albumin 1.8 g/dL (3.4-5.0); Calcium 6.9 mg/dL (8.5-10.1); Potassium 5.3 mmol/L (3.5-5.1)
[2020-04-08 04:39] LABS: % Iron Saturation 94.4 % (20-55)
[2020-04-08 04:41] LABS: INR 1.87 (0.9-1.15)
[2020-04-08 04:56] LABS: BUN/Creatinine Ratio 11.9; Bilirubin, Total 2.3 mg/dL (0.2-1.0); Total Protein 5.9 g/dL (6.4-8.2)
--- NOTE | 2020-04-08 05:00 | NUR ---
PARTIAL BED BATH, PENNIE CARE, MCDONALD CARE, ORAL CARE, AND FULL LINEN CHANGE COMPLETED - TOLERATED WELL
[2020-04-08 05:09] LABS: Band Neutrophils % (manual) 19; Lymphocytes % (manual) 7 (10.0-50.0); Monocytes % (manual) 2 (0-12)
[2020-04-08] MEDS: InsuLIN REG 1unit/0.01ml Soln (100units/ml) SC SCH ×3 (06:00→17:58)
[2020-04-08] MEDS: ACCU-CHEK COMFORT CURVE STRIP VI SCH ×3 (06:00→18:01)
[2020-04-08] MEDS: METOCLOPRAMIDE HCL 5MG/ml INJ 2ml VIAL IV SCH ×3 (06:00→21:58)
[2020-04-08] MEDS ORDERED: SODIUM CHL 0.9% 1000 ML BAG XX ONE (07:00)
--- NOTE | 2020-04-08 07:00 | NUR ---
REPORT AND CARE ENDORSED TO BRAVO LANGE
--- NOTE | 2020-04-08 07:40 | NUR ---
RN HERE FOR HEMODIALYSIS USING NANO CATHETER RT. FEMORAL. PT. CURRENTLY ON NEOSYNEPHRINE GTT. AT 105 MCG., LEVOPHED GTT. AT 15 MCG., AND DOPAMINE GTT. AT 5 MCG. MONITORING BP.
[2020-04-08] MEDS ORDERED: ALBUMIN 25% 100 ML IV STA (08:22)
--- NOTE | 2020-04-08 08:30 | NUR ---
SBP DECREASED TO LOW 70'S DURING HEMODIALYSIS. HR INCREASED TO 100'S-110'S. INCREASING NEOSYNEPHRINE GTT. UP AND LEVOPHED GTT. UP. MONITORING BP.
--- NOTE | 2020-04-08 08:49 | NUR ---
SBP INCREASED TO 125 NOW DURING HD.
--- NOTE | 2020-04-08 09:33 | NUR ---
DR. SHARMA CALLED. GAVE UPDATE ON PT.
[2020-04-08] MEDS: PANTOPRAZOLE 40 MG/10 ML VIAL INJ IV SCH (10:27)
[2020-04-08] MEDS: BUDESONIDE (INHALATION) 0.5 MG/2 ML NEB NEB SCH ×2 (10:35→18:25)
--- NOTE | 2020-04-08 10:40 | NUR ---
HEMODIALYSIS COMPLETED. 350 CC OF FLUID REMOVED PER DRUG DEPARTMENT WORKER.
[2020-04-08] MEDS: INSULIN LANTUS (GLARGINE) 1 /0.01ml (100units/ml) SC SCH (10:41)
--- NOTE | 2020-04-08 11:50 | NUR ---
DR. REY Provider/Hospitalist at bedside. GAVE UPDATE ON PT. NEW ORDERS RECEIVED.
[2020-04-08] MEDS ORDERED: VANCOMYCIN 1GM/250ML 250 ML IV SCH (12:00)
--- NOTE | 2020-04-08 13:00 | NUR ---
ALLOWED PT'S. AND SON TO VISIT AT BS. GAVE UPDATE TO FAMILY.
--- NOTE | 2020-04-08 14:10 | NUR ---
DR. SHARMA Provider/Hospitalist at bedside. GAVE UPDATE ON PT.
[2020-04-08] MEDS: AMIODARONE 450mg/250ml AE 250 ML IV SCH (14:20)
--- NOTE | 2020-04-08 14:33 | NUR ---
Nutrition Followup Notes wt: 93.1 kg Pt`s intubated sedated with propofol @ 15.264 ml/hr providing 402 kcals from fats. pt is currently NPO not yet initiated on EN support. pt had HD 04/08 as inpatient HD Est energy needs 2929-9846 kcal (20-23 kcal/kg BW 84.8kg) Est protein needs 68-85g (0.8-1g/kg BW) Will reassess if pt continues to be on HD LABS: BUN 41 H, CREAT 3.44 H, ALB 1.8 L, GLU 237 H JUANA 2.3 H GI: Pt has no BM reported per RN doc BS: 11 high risk. Refer to wound assessment report for full details. PES: Inadequate oral intake aeb pt with NPO diet order r/t current medical condition Altered nutrition related labs aeb pt with hyperglycemia, hypoalb r/t current and chronic medical condition Comments: Continue to monitor NPO status, labs, skin. F/u mod 2-3 days Rec: 1) Refer pt to CDE on DC 2) Continue current plan of care. 3) Consider goal rate of Glucerna 1.2 at 60 ml/hr per MD approval.
[2020-04-08] MEDS: LINEZOLID 600MG/300ML 300 ML IV SCH (14:42)
--- NOTE | 2020-04-08 15:10 | NUR ---
DR. MELTON Provider/Hospitalist at bedside.
[2020-04-08] MEDS: FUROSEMIDE 100 MG/10ML VIAL IV SCH (18:00)
--- NOTE | 2020-04-08 18:35 | NUR ---
DR. LUEVANO Provider/Hospitalist at bedside. GAVE UPDATE ON PT.
--- NOTE | 2020-04-08 19:15 | NUR ---
OPENING SHIFT RECEIVED REPORT FROM DAY SHIFT RN. ASSUMED CARE OF PATIENT. PATIENT INTUBATED AND SEDATED WITH NO SIGNS OR SYMPTOMS OF SOB, PAIN OR DISTRESS. HYPOACTIVE COUGH AND GAG. RIGHT INTERNAL JUGULAR TLC AND RIGHT FEMORAL NANO CATHETER - CLEAN/DRY/INTACT. MCDONALD HUNG TO GRAVITY. SEDATION: VERSED - 15MG/HR FENTANYL - 50MCG/HR PROPOFOL - 25MCG/KG/MIN VASOPRESSORS: LEVOPHED - 24MCG/MIN NEOSYNEPHRINE DOUBLE - 180MCG/MIN DOPAMINE - 2MCG/KG/MIN REPOSITIONED FOR COMFORT. BED IN LOWEST POSITION, SIDE RAILS UP X2. WILL CONTINUE TO MONITOR.
--- NOTE | 2020-04-08 21:35 | NUR ---
SPOKE WITH DAUGHTER PASSWORD VERIFIED. UPDATED DAUGHTER ON PATIENT STATUS AND PLAN OF CARE. ALL QUESTIONS AND CONCERNS ANSWERED AND ADDRESSED.
[2020-04-08] MEDS: ATORVASTATIN 20 MG TAB GT SCH (22:25)
[2020-04-09] VITALS (69 sets, daily range): BP systolic 75–126; BP diastolic 26–98
[2020-04-09] MEDS: LINEZOLID 600MG/300ML 300 ML IV SCH
[2020-04-09] MEDS: ACCU-CHEK COMFORT CURVE STRIP VI SCH ×3 (00:30→11:30)
--- NOTE | 2020-04-09 02:00 | NUR ---
SEDATION RESTARTED PATIENT RR IN THE 30'S. SEDATION RESTARTED. WILL CONTINUE TO MONITOR.
[2020-04-09] MEDS: IPRATROPIUM BROM 0.5 MG/2.5ML INH SOL NEB SCH ×4 (02:38→14:31)
[2020-04-09] MEDS: ALBUTEROL SULF 2.5 MG/0.5ML(0.5%) NEB SOLN NEB SCH ×4 (02:38→14:31)
[2020-04-09] MEDS: ACETYLCYSTEINE 10 %(100MG/ML) SOL 4ML NEB SCH ×4 (02:39→14:31)
[2020-04-09] MEDS: PHENYLEPHRINE INJ 40 MG in SODIUM CHL 0.9% 250 ML IV SCH ×6 (03:00→14:29)
--- NOTE | 2020-04-09 04:30 | NUR ---
UNABLE TO DRAW LABS FROM CENTRAL LINE. NOTIFIED BOX BLANK MACHINE OPERATOR TO COME DRAW PATIENT.
--- NOTE | 2020-04-09 04:45 | NUR ---
MORNING CARE PARTIAL LINEN CHANGE AND GOWN CHANGED. PATIENT BATHED WITH CHG WIPES. ORAL AND MCDONALD CARE PERFORMED.
[2020-04-09] MEDS: NOREPINEPHRINE 8 MG/250ML KIT 250 ML IV SCH ×2 (05:00)
[2020-04-09] MEDS: AMIODARONE 450mg/250ml AE 250 ML IV SCH (05:20)
--- NOTE | 2020-04-09 05:30 | NUR ---
TITRATED FI02 TO 90%. PATIENT 02 SAT SUSTAINING IN THE 87's. RT NOTIFIED WILL CONTINUE TO MONITOR.
--- NOTE | 2020-04-09 05:45 | NUR ---
[facility] TO SEND PORTABLE IRRIGATION OPERATOR TO DRAW PATIENT LABS. Addendum: 04/09/20 at 13 by DESEAN CAMPOS RN RN UNABLE TO DRAW FROM CENTRAL LINE.
[2020-04-09] MEDS: InsuLIN REG 1unit/0.01ml Soln (100units/ml) SC SCH ×3 (06:05→11:30)
[2020-04-09] MEDS: FUROSEMIDE 100 MG/10ML VIAL IV SCH (06:12)
[2020-04-09] MEDS: METOCLOPRAMIDE HCL 5MG/ml INJ 2ml VIAL IV SCH ×2 (06:13→15:02)
--- NOTE | 2020-04-09 06:15 | NUR ---
RT AT BEDSIDE PATIENT 02 SAT - 86%. FI02 TITRATED UP TO 100%. WILL CONTINUE TO MONITOR.
[2020-04-09] MEDS ORDERED: SODIUM CHL 0.9% 1000 ML BAG XX ONE (07:00)
--- NOTE | 2020-04-09 07:10 | NUR ---
SPOKE WITH DR. SHARMA UPDATED DOCTOR ON PATIENT STATUS. RECEIVED ORDERS TO NOT START DIALYSIS AT THIS TIME. WILL CONTINUE TO MONITOR.
--- NOTE | 2020-04-09 07:30 | NUR ---
SPOKE WITH DR. MIDDLETON MADE AWARE OF PATIENT STATUS. RECEIVED ORDERS TO RETEST FOR COVID. TORB. WILL CONTINUE TO MONITOR.
--- NOTE | 2020-04-09 07:40 | NUR ---
END OF SHIFT REPORT GIVEN TO DAY SHIFT RN. CARE ENDORSED.
--- NOTE | 2020-04-09 08:20 | NUR ---
Dr An visits and examines patient - no new orders received.
--- NOTE | 2020-04-09 08:26 | NUR ---
Respiratory note: A MESSAGE WAS LEFT WITH DR MALDONADO CONCERNING ABG RESULTS. AWAITING CALL BACK.
--- NOTE | 2020-04-09 08:26 | NUR ---
CALL PLACED TO DR LUEVANO RE: CRITICAL ABG'S
--- NOTE | 2020-04-09 09:00 | NUR ---
SEDATION VACATION HELD SECONDARY TO PATIENT'S CRITICAL CONDITION Addendum: 04/09/20 at 205 by Mary Ann Castro RN Amended: Links added.
[2020-04-09] MEDS: DOPamine 1600MCG/ML D5W 250 ML IV SCH (09:15)
[2020-04-09] MEDS: MIDAZOLAM DRIP 50 mg/50mL 50 ML IV SCH ×3 (09:17→14:45)
[2020-04-09] MEDS ORDERED: NOREPINEPHRINE BITARTRATE 16 MG in SODIUM CHL 0.9% 250 ML IV SCH (09:27)
[2020-04-09] MEDS ORDERED: DOPamine 3200MCG/ML 250 ML IV SCH (09:27)
[2020-04-09] MEDS ORDERED: SODIUM BICARBONATE 8.4 % INJ 50ML VIAL IV ONE ×3 (09:30→15:30)
[2020-04-09] MEDS ORDERED: SODIUM BICARBONATE 8.4% INJ 50ML SYRINGE ONE ×2 (09:30→09:36)
--- NOTE | 2020-04-09 09:30 | NUR ---
Dr Alfaro contacted re: abg results - orders received and Sodium Bicarb given IVP.
[2020-04-09] MEDS: BUDESONIDE (INHALATION) 0.5 MG/2 ML NEB NEB SCH (09:52)
[2020-04-09] MEDS ORDERED: levoFLOXacin 750MG 150 ML IV SCH (10:00)
--- NOTE | 2020-04-09 10:15 | NUR ---
Dr Alfaro visits and examines patient - orders received.
--- NOTE | 2020-04-09 10:15 | NUR ---
Saumya AUTO VINYL TOP INSTALLER visits and examines patient - orders received.
--- NOTE | 2020-04-09 10:20 | NUR ---
Patient's daughter Diane phones - updated on patient condition - states Dr Alfaro informed them of patient's critical condition - states 4 family members are going to visit today as advised per Dr Alfaro - verbalizes understanding of patient's condition.
--- NOTE | 2020-04-09 10:26 | NUR ---
Dr Victor phones - informed of abg results - orders received.
[2020-04-09] MEDS ORDERED: SODIUM BICARBONATE 50ML VIAL 75 ML in D5W 5% 1,000 ML IV SCH (10:30)
[2020-04-09] MEDS ORDERED: SODIUM BICARBONATE 50ML VIAL 150 ML in D5W 5% 1,000 ML IV SCH (10:30)
[2020-04-09] MEDS ORDERED: ALBUMIN 25% 100 ML IV SCH (10:30)
[2020-04-09] MEDS ORDERED: ALBUMIN 25% 100 ML IV ONE (10:30)
[2020-04-09] MEDS ORDERED: VASOPRESSIN 50 UNITS in D5W 5% 247.5 ML IV SCH (10:45)
[2020-04-09] MEDS: PANTOPRAZOLE 40 MG/10 ML VIAL INJ IV SCH (10:46)
--- NOTE | 2020-04-09 11:35 | NUR ---
Dr Montoya visits and examines patient with RT - orders received.
[2020-04-09 11:38] LABS: Hepatitis A Ab IgM Negative; Hepatitis B Core IgM Negative; Hepatitis B Surface Antigen Negative (Negative); Hepatitis C Antibody Negative (Negative)
--- NOTE | 2020-04-09 11:41 | NUR ---
PT REMAINS UNSTABLE FOR TRANSPORT TO CT AT THIS TIME
[2020-04-09] MEDS: INSULIN LANTUS (GLARGINE) 1 /0.01ml (100units/ml) SC SCH (11:47)
[2020-04-09] MEDS ORDERED: CALCIUM GLUC 4.65meq/50ml D5AE 50 ML IV ONE (12:15)
--- NOTE | 2020-04-09 12:21 | NUR ---
NEW VENT ORDERS FROM DR FIGUEROA PCV RR 30, PI 22, I TIME 1.0, PEEP 14. ABG AFTER 1 HOUR. RN FRANCISCA AWARE OF CHANGES
[2020-04-09] MEDS: PROPOFOL 100 ML IV SCH ×2 (13:02)
--- NOTE | 2020-04-09 13:19 | NUR ---
RESPIRATORY REPORTED ABG RESULTS TO DR FIGUEROA. AWAITING ORDERS.
--- NOTE | 2020-04-09 13:40 | NUR ---
SPOKE TO DR FIGUEROA VIA TELEPHONE. NEW VENT ORDERS: PCV RR 30, PI 22, I TIME 1.0, PEEP 15, FIO2 100%. RN FRANCISCA AWARE OF CHANGES. ABG TO FOLLOW IN 4 HOURS.
[2020-04-09 14:11] LABS: Hematocrit 25.6 % (41.0-53.0); Mean Corpuscular Hgb Conc. 31.1 g/dL (32.0-36.0); Mean Corpuscular Volume 90.1 fL (80.0-100.0); Platelet Count (auto) 91 10^3/uL (140-450); Red Blood Cells 2.84 10^6/uL (4.5-5.90); Red Cell Distribution Width 16.5 % (11.8-14.3); White Blood Cell 15.4 10^3/uL (4.4-10.8)
[2020-04-09 14:13] LABS: Basophils % (manual) 0 (0.0-2.0); Blast Cells 0; Eosinophils % (manual) 0 (0-7); Promyelocytes % 0; Reactive Lymphocytes 0
--- NOTE | 2020-04-09 14:30 | NUR ---
Patient's family at bedside.
[2020-04-09 14:52] LABS: Alkaline Phosphatase 250 U/L (45-117); Bilirubin, Total 3.1 mg/dL (0.2-1.0); GFR African American 18 mL/min; GFR Non-African American 15 mL/min; Total Protein 4.8 g/dL (6.4-8.2)
[2020-04-09 14:58] LABS: Chloride 95 mmol/L (98-107); Sodium 129 mmol/L (136-145)
[2020-04-09 14:59] LABS: Albumin 1.6 g/dL (3.4-5.0); Anion Gap 17 (5-15); BUN/Creatinine Ratio 9.9; Blood Urea Nitrogen 42 mg/dL (7-18); Carbon Dioxide 17 mmol/L (21-32); Glucose 160 mg/dL (74-106)
--- NOTE | 2020-04-09 15:00 | NUR ---
Patient's family at bedside.
[2020-04-09 15:11] LABS: Calcium 5.5 mg/dL (8.5-10.1)
[2020-04-09] MEDS ORDERED: EPINEPHrine HCL 250 ML IV SCH (15:21)
--- NOTE | 2020-04-09 15:23 | NUR ---
Dr Alfaro notified of bp 76/24-orders received.
[2020-04-09] MEDS ORDERED: DEXTROSE (50%) 50ML SYRG IV ONE (15:30)
[2020-04-09] MEDS ORDERED: ALBUTEROL SULF 2.5 MG/0.5ML(0.5%) NEB SOLN NEB ONE (15:30)
[2020-04-09] MEDS ORDERED: SODIUM ZIRCONIUM CYCL 10 GM PAK PO ONE ×2 (15:30)
[2020-04-09] MEDS ORDERED: InsuLIN REG 1unit/0.01ml Soln (100units/ml) IV ONE (15:30)
--- NOTE | 2020-04-09 15:38 | NUR ---
PATIENT MAX 40 WITHOUT PALPABLE PULSE - CODE CALL AND CPR STARTED - SEE CODE RECORD. DR MDIDLETON AT BEDSIDE PARTICIPATING IN CODE.
[2020-04-09] MEDS ORDERED: EPINEPHrine HCL 1 MG/10 ML SYRG IV ONE (15:41)
[2020-04-09] MEDS ORDERED: SODIUM BICARBONATE 8.4% INJ 50ML SYRINGE IV ONE (15:41)
--- NOTE | 2020-04-09 15:42 | NUR ---
RESUSCITATION ATTEMPTS UNSUCCESSFUL - CODE CALLED.
[2020-04-09 16:12] LABS: Aspartate Aminotransferase 4120 U/L (15-37)
[2020-04-09 16:13] LABS: Alanine Aminotransferase 1812 U/L (16-61)
--- NOTE | 2020-04-09 16:16 | NUR ---
CORONERS PAGED AWAITING CALLBACK.
--- NOTE | 2020-04-09 17:15 | NUR ---
PATIENT'S FAMILY AT BEDSIDE.
[2020-04-09 17:26] LABS: Band Neutrophils % (manual) 10; Lymphocytes % (manual) 5 (10.0-50.0); Metamyelocytes % 3; Monocytes % (manual) 2 (0-12); Myelocytes % 1
--- NOTE | 2020-04-09 18:00 | NUR ---
LOLI BOUCHER FROM [employer] RETURNED CALL - RELEASED BODY WITHOUT CASE NUMBER AFTER QUESTIONS WERE ANSWERED RE: SUICIDE/TRAUMA AND DRUG/ALCOHOL HISTORY-DOCUMENTED ON RELEASE OF REMAINS FORM.
--- NOTE | 2020-04-09 18:15 | NUR ---
PATIENT'S FAMILY AT BEDSIDE
--- NOTE | 2020-04-09 18:45 | NUR ---
PATIENT'S FAMILY DEPARTS.
--- NOTE | 2020-04-09 19:10 | NUR ---
Re: [facility] Family chose [facility]. Spoke with [facility]. Pt demographics given. Awaiting call back for ETA.
--- NOTE | 2020-04-09 19:50 | NUR ---
POST MORTEM CARE COMPLETED, ALL TUBES AND LINES REMOVED.
[2020-04-09] MEDS ORDERED: EPOETIN ALFA 4,000 UNIT/ML VL SC ONE (21:00)
--- NOTE | 2020-04-09 21:00 | NUR ---
BODY PICKED UP BY [facility]. ALL PERSONAL BELONGINGS SENT HOME WITH FAMILY. ALL ID TAGS IN PLACE.
== END 2020-04-09 15:42 | disposition expired | DRG 870 ==
LOC: ER 00:25 → OVERFLOW 00:26 → CATH ICU 04-05 20:30
PROVIDERS: ADMIT Hospitalist; ATTEND Internal Medicine
PROC: 5A1955Z Respiratory Ventilation, Greater than 96 Consecutive Hours (ICD-10-PCS; principal; 2020-04-03)
PROC: 0BH17EZ Insertion of Endotracheal Airway into Trachea, Via Natural or Artificial Opening (ICD-10-PCS; 2020-04-03)
PROC: 5A12012 Performance of Cardiac Output, Single, Manual (ICD-10-PCS; 2020-04-03)
PROC: 02HV33Z Insertion of Infusion Device into Superior Vena Cava, Percutaneous Approach (ICD-10-PCS; 2020-04-03)
PROC: 5A1D70Z Performance of Urinary Filtration, Intermittent, Less than 6 Hours Per Day (ICD-10-PCS; 2020-04-06)
PROC: 06HM33Z Insertion of Infusion Device into Right Femoral Vein, Percutaneous Approach (ICD-10-PCS; 2020-04-07)
PROC: B54BZZA Ultrasonography of Right Lower Extremity Veins, Guidance (ICD-10-PCS; 2020-04-07)
DX: A41.01 Sepsis due to Methicillin susceptible Staphylococcus aureus (principal); E11.01 Type 2 diabetes mellitus with hyperosmolarity with coma; I21.A1 Myocardial infarction type 2; R65.21 Severe sepsis with septic shock; E43 Unspecified severe protein-calorie malnutrition; N17.0 Acute kidney failure with tubular necrosis; G93.41 Metabolic encephalopathy; I63.539 Cerebral infarction due to unspecified occlusion or stenosis of unspecified posterior cerebral artery; J96.00 Acute respiratory failure, unspecified whether with hypoxia or hypercapnia; J69.0 Pneumonitis due to inhalation of food and vomit; I50.31 Acute diastolic (congestive) heart failure; I47.1 Supraventricular tachycardia; D68.69 Other thrombophilia; G93.1 Anoxic brain damage, not elsewhere classified; E87.1 Hypo-osmolality and hyponatremia; I48.92 Unspecified atrial flutter; I13.0 Hypertensive heart and chronic kidney disease with heart failure and stage 1 through stage 4 chronic kidney disease, or unspecified chronic kidney disease; J98.11 Atelectasis; I31.3 Pericardial effusion (noninflammatory); I46.9 Cardiac arrest, cause unspecified; I48.91 Unspecified atrial fibrillation; N18.3 Chronic kidney disease, stage 3 (moderate); H53.462 Homonymous bilateral field defects, left side; I65.29 Occlusion and stenosis of unspecified carotid artery; E11.65 Type 2 diabetes mellitus with hyperglycemia; E78.5 Hyperlipidemia, unspecified; D64.9 Anemia, unspecified; E11.22 Type 2 diabetes mellitus with diabetic chronic kidney disease; E87.5 Hyperkalemia; Z20.828 Contact with and (suspected) exposure to other viral communicable diseases; Z68.25 Body mass index [BMI] 25.0-25.9, adult
CPT/HCPCS: 31500; 36415; 36600; 70450; 71045; 74176; 76604; 80048; 80053; 80061; 80074; 80202; 80307; 81001; 82728; 82805; 82962; 83540; 83550; 83605; 83615; 83735; 83880; 84100; 84132; 84443; 84484; 85007; 85025; 85027; 85379; 85610; 85730; 86141; 86850; 86900; 86901; 87040; 87070; 87077; 87081; 87086; 87186; 87205; 90935; 93005; 93306; 93886; 94002; 94003; 94640; 95819; 96365; 96367; 96375; C9113; G0378; J0330; J0610; J1265; J1642; J1815; J1956; J2250; J2405; J2543; J2704; J3430; J3480; J7060; P9047